=== PATIENT | male | born 1985 | race Caucasian/White ===

== ENCOUNTER 2018-07-21 04:20 | Emergency (ER) | payer OTHER ==
--- NOTE | 2018-07-21 05:38 | ER Document Report ---
ED Burn/Smoke/Toxic Fumes - General Chief Complaint: Headache Stated Complaint: POSSIBLE CO EXPOSURE Time Seen by Provider: 07/21/18 05:08 Notes: Patient is a 32-year-old male presenting to the emergency department with possible carbon monoxide poisoning. Patient states he was a occupant at the holiday and expressed when his girlfriend who was also staying in the same room had woken up around 1 AM and vomited 3 times. Patient states he noticed at that time he had a slight headache but thought nothing of it. Patient then states the fire department started knocking on the door and telling them to evacuate the building. Patient states he currently has a headache and is nauseated but denies any vomiting. Past medical history: Hypertension Medications: None Allergies: None Patient denies cigarette smoking, EtOH use, illicit drug use. - Related Data Allergies/Adverse Reactions: No Known Drug Allergies Allergy (Verified 07/21/18 05:26) Past Medical History - General Information source: Patient - Social History Smoking Status: Never Smoker Lives with: Family Family History: Reviewed & Not Pertinent Review of Systems - Review of Systems Constitutional: No symptoms reported EENT: No symptoms reported Cardiovascular: No symptoms reported Respiratory: No symptoms reported Gastrointestinal: See HPI Genitourinary: No symptoms reported Male Genitourinary: No symptoms reported Musculoskeletal: No symptoms reported Skin: No symptoms reported Hematologic/Lymphatic: No symptoms reported Neurological/Psychological: See HPI Physical Exam - Vital signs Vitals: Temp Pulse BP 97.2 F 79 113/100 H 07/21/18 05:13 07/21/18 05:13 07/21/18 05:13 - Notes Notes: GENERAL: Alert, interacts well. No acute distress. HEAD: Normocephalic, atraumatic. EYES: Pupils equal, round, and reactive to light. Extraocular movements intact. ENT: Oral mucosa moist, tongue midline. NECK: Full range of motion. Supple. Trachea midline. LUNGS: Clear to auscultation bilaterally, no wheezes, rales, or rhonchi. No respiratory distress. HEART: Regular rate and rhythm. No murmur ABDOMEN: Soft, non-tender. Non-distended. Bowel sounds present in all 4 quadrants. EXTREMITIES: Moves all 4 extremities spontaneously. No edema, normal radial and dorsalis pedis pulses bilaterally. No cyanosis. BACK: no cervical, thoracic, lumbar midline tenderness. No saddle anesthesia, normal distal neurovascular exam. NEUROLOGICAL: Alert and oriented x3. Normal speech. cranial nerves II through XII grossly intact. PSYCH: Normal affect, normal mood. SKIN: Warm, dry, normal turgor. No rashes or lesions noted. Course - Re-evaluation Re-evalutation: 07/21/18 07:31 Replete carbon monoxide level was 7 with finger probe. Symptoms have resolved. He continues to deny headache, weakness, nausea. - Vital Signs Vital signs: Temp Pulse Resp BP Pulse Ox 97.2 F 79 113/100 H 07/21/18 05:13 07/21/18 05:13 07/21/18 05:13 - Laboratory Laboratory results interpreted by me: 07/21/18 04:50 Carboxyhemoglobin 19.8 H Discharge - Discharge Clinical Impression: Carbon monoxide exposure Condition: Stable Disposition: HOME, SELF-CARE Instructions: Carbon Monoxide ([facility]) Additional Instructions: Please return to the emergency room for any other worsening symptom symptoms.
[2018-07-21 07:46] VITALS: BP 129/78
[2018-07-21] MEDS ORDERED: ACETAMINOPHEN 325 MG TABLET PO ONE (08:08)
== END 2018-07-21 08:14 | disposition home or self-care (01) ==
LOC: ER 04:20
DX: T58.91XA Toxic effect of carbon monoxide from unspecified source, accidental (unintentional), initial encounter (principal); R51 Headache; R11.10 Vomiting, unspecified; I10 Essential (primary) hypertension; X58.XXXA Exposure to other specified factors, initial encounter
CPT/HCPCS: 36415; 82375; 99284